=== PATIENT | female | born 1950 | race Caucasian/White ===

== ENCOUNTER 2020-03-29 17:19 | Emergency (ER) | payer MEDICARE ==
[~2020-03-29] VITALS: Ht 172.7 cm; Wt 112.7 kg
[~2020-03-29 17:19] MED LIST: ABILIFY2 MG PO; AMBIEN5 MG PO; BACLOFEN10 MG PO; CLEOCIN HCL300 MG PO; COLACE100 MG PO; FUROSEMIDE20 MG PO; K-DUR20 MEQ; LEXAPRO5 MG; METHOCARBAMOL750 MG; TRAZODONE HCL150 MG PO; ULTRAM50 MG PO; VOLTAREN25 MG PO
[2020-03-29 17:28] VITALS: Ht 172.7 cm; Wt 112.7 kg
[2020-03-29 19:12] LABS: ANION GAP 10.5 mmol/L (8-16); BASOPHILS 0.2 % (0-2); CALCIUM 8.6 mg/dL (8.5-10.1); CARBON DIOXIDE 27.2 mmol/L (21.0-32.0); CREATININE - SERUM 0.9 mg/dL (0.6-1.3); EOSINOPHILS 1.1 % (0-7); HEMATOCRIT 48.4 % (36.0-48.0); HEMOGLOBIN 15.3 g/dL (12-16); IMMATURE GRANULOCYTES 0.5 % (0-5); LYMPHOCYTES 25.6 % (15-50); MCH 25.7 pg (26.0-34.0); MCHC 31.6 g/dL (31.0-37.0); MCV 81.3 fL (80.0-100.0); MEAN PLATELET VOLUME 10.4 fL (7.4-10.4); MONOCYTES 10.2 % (2-11); NEUTROPHILS 62.4 % (40-80); PLATELET COUNT 145 10x3/uL (130-400); POTASSIUM - SERUM 3.7 mmol/L (3.5-5.1); RBC 5.95 10x6/uL (4.00-5.40); RDW 18.2 % (11.5-14.5); WBC 8.4 10x3/uL (4.8-10.8)
[2020-03-29 19:15] LABS: ALBUMIN 3.2 g/dL (3.4-5.0); BILIRUBIN - TOTAL 0.59 mg/dL (0.2-1.3)
[2020-03-29] MEDS ORDERED: FENTANYL TRANSDERM (19:44)
[2020-03-29 20:27] LABS: BILIRUBIN NEGATIVE (NEGATIVE); KETONE SMALL mg/dL (NEGATIVE); NITRITE NEGATIVE (NEGATIVE); UROBILINOGEN NORMAL (NORMAL)
[2020-03-29] MEDS ORDERED: NORFLEX100 MG PO (22:04)
[2020-03-29 22:25] VITALS: BP 111/61
== END 2020-03-29 22:25 | disposition home or self-care (01) ==
LOC: D.ER 17:19
PROVIDERS: Emergency Medicine; Family Medicine
DX: M54.9 Dorsalgia, unspecified (principal); W19.XXXA Unspecified fall, initial encounter; E11.9 Type 2 diabetes mellitus without complications; I50.9 Heart failure, unspecified; Z95.0 Presence of cardiac pacemaker; J44.9 Chronic obstructive pulmonary disease, unspecified